=== PATIENT | female | born 2000 | race Caucasian/White ===

== ENCOUNTER → 2021-01-20 11:44 | Outpatient (CLI) | payer OTHER, SELFPAY ==
--- NOTE | 2021-01-20 11:50 | DI.RAD.S_ITS ---
PROCEDURE: XR FINGER LT MIN 2V INDICATIONS: dog bite TECHNIQUE: PA hand and two views of the index finger obtained. COMPARISON: None. FINDINGS: Bones: No acute fractures or dislocations. No suspicious bony lesions. Soft tissues: No suspicious soft tissue calcifications. Soft tissue edema is seen in the index finger. No radiopaque foreign body or soft tissue gas. IMPRESSION: No acute osseous abnormality. If clinical suspicion and/or symptoms persist, additional imaging with repeat plain films, or advanced imaging (e.g. CT, MRI) may be helpful for further assessment. Dictated by: Isidro Moss M.D. on 01/20/2021 at 12:08 Approved by: Isidro Moss M.D. on 01/20/2021 at 12:08
== END ==
PROVIDERS: Referring Provider Nurse Practitioner Family; Visit Provider Nurse Practitioner Family
DX: S61.251A Open bite of left index finger without damage to nail, initial encounter (principal); W54.0XXA Bitten by dog, initial encounter
CPT/HCPCS: 73140